=== PATIENT | female | born 1960 | race Caucasian/White ===

== ENCOUNTER 2019-03-17 12:19 | Day surgery (SDC) | payer MEDICARE, OTHER ==
[~2019-03-17] VITALS: Ht 154.9 cm; Wt 99.5 kg
[~2019-03-17 12:19] MED LIST: FENO160 PO; GUAIF600 PO; HYD25 PO; LEVO50 PO; MET500 PO; OMEP20 PO; PARO20TA24 PO; PRAV40TA4 PO; PROPOFOL 1% 20 ML VIAL IVP ONE; SODIUM CHLORIDE 0.9% 1,000 ML IV ONE; TIZA4TAB4 PO; TRAM50TA4 PO
== END 2019-03-17 17:00 | disposition home or self-care (01) ==
LOC: SURGERY 12:19
PROVIDERS: ATTEND Internal Medicine Gastroenterology
DX: K29.50 Unspecified chronic gastritis without bleeding (principal); K31.89 Other diseases of stomach and duodenum; K21.9 Gastro-esophageal reflux disease without esophagitis; Z79.899 Other long term (current) drug therapy; F32.9 Major depressive disorder, single episode, unspecified; F12.90 Cannabis use, unspecified, uncomplicated; E03.9 Hypothyroidism, unspecified; E66.9 Obesity, unspecified; Z90.49 Acquired absence of other specified parts of digestive tract; Z98.890 Other specified postprocedural states; Z90.3 Acquired absence of stomach [part of]; Z96.649 Presence of unspecified artificial hip joint; Z72.89 Other problems related to lifestyle; Z68.41 Body mass index [BMI] 40.0-44.9, adult
CPT/HCPCS: 43239; 43245; C1769; J2704; J7030; 88305; 88312; 88313